=== PATIENT | female | born 1940 | race Caucasian/White ===

== ENCOUNTER → 2021-04-18 | Outpatient (CLI) | payer MEDICARE ==
--- NOTE | 2021-05-01 13:12 | RAD ---
Bilateral digital screening mammogram to include digital breast tomosynthesis (3-D mammography) 04/18 CLINICAL HISTORY: Screening study. Digital MLO and CC mammograms of both breasts were obtained. Additionally digital breast tomosynthesi s images (3-D mammography) of both breasts in the CC and MLO projections were obtained. Comparison is made to the patient's outside mammograms from [facility] in [facility] ated 03/27/2018. The breast parenchyma is composed of scattered fibroglandular densities which can obscure a lesion on mammography (breast density B). Benign-appearing calcifications are seen within both breasts. No spi culated mass is seen. No malignant appearing calcification or area of architectural distortion is not ed. Digital breast tomosynthesis images demonstrate no spiculated mass. No malignant appearing calcificat ion is seen. Impression: BI-RADS Category 1: Negative. There is no mammographic evidence of malignancy. Routine y early screening mammography is recommended for follow-up. This examination was reviewed with the aid of computer-aided detection. A mammogram does not have 100% sensitivity and therefore a negative imaging study should not delay fu rther work up of a suspicious abnormality. Patient information is entered into the reminder system with a target due date for the next screening mammogram of 04/18/2022. "Our facility is accredited by the [employer] Mammography Program." Electronically signed by: Connor Duarte MD (05/01/2021 1:10 PM) [id number]
== END ==
LOC: MAMMO 09:13
PROVIDERS: ATTEND Internal Medicine Geriatric Medicine
DX: Z12.31 Encounter for screening mammogram for malignant neoplasm of breast (principal)
CPT/HCPCS: 77063; 77067